=== PATIENT | female | born 1990 | race Caucasian/White ===

== ENCOUNTER → 2019-12-27 16:56 | Outpatient (CLI) | payer OTHER, SELFPAY ==
[2013-09-23 01:33] VITALS: BMI 37.3
[2020-01-03 14:55] LABS: HPV Reflexed? NOT INDICATED
== END ==
PROVIDERS: Visit Provider Obstetrics & Gynecology
DX: Z12.4 Encounter for screening for malignant neoplasm of cervix (principal)
CPT/HCPCS: 88175; G0145